=== PATIENT | male | born 1940 | race Caucasian/White ===

== ENCOUNTER 2023-06-12 09:48 | Day surgery (SDC) | payer OTHER, SELFPAY ==
[2023-06-12] VITALS (12 sets, daily range): BP systolic 111–155; BP diastolic 66–81; BMI 25.0
[2023-06-12] MEDS: NSS 237 ML IV (10:53)
[2023-06-12 10:58] LABS: Glucose - Point of Care 131 mg/dl (70-99)
--- NOTE | 2023-06-12 11:41 | ITS.CL.CATH ---
[facility] - Catheterization
Cardiac Catheterization
Procedure Report:
CARDIAC CATHETERIZATION REPORT
Date of Procedure: 06/12/2023
Referring: Garrett Mariano DO
Indication: Worsening angina with abnormal stress test
HEMODYNAMIC DATA
AO: 110/56
LV: Not done
LEFT VENTRICULOGRAPHY: Not done
CORONARY ANGIOGRAPHY
Dominance: Right
Left Main: Mild distal tapering
LAD: Diffuse moderate calcification in the proximal and mid LAD. There is 30% mid LAD stenosis and otherwise mild luminal irregularities in the LAD proper. The first diagonal branch is a medium size vessel with 30% mid stenosis. The second
diagonal branch is large with 40-50% ostial stenosis.
Circumflex: The circumflex gives rise to a medium sized OM1, a large OM 2, and a medium sized OM 3. The circumflex continues in the AV groove to provide collaterals to the occluded RCA. The large OM 2 is 80% proximal stenosis.
RCA: The RCA is dominant and occluded at its origin. There are well-developed septal collaterals to the large RPDA and two moderate to severely diseased right posterolateral branches fill via collaterals from the circumflex AV groove branch
Angioplasty: At the conclusion of the diagnostic study, the patient underwent angioplasty and stenting of the 80% proximal circumflex and OM 2 stenosis. Heparin was used for anticoagulation. Plavix 300 mg (half load as patient is on chronic
Plavix) was administered the procedure conclusion. A 6 Irish AL 2 guide was advanced to the aortic root but could not be manipulated into the left coronary ostium. Of note, there was significant tortuosity of the innominate making and a catheter
manipulation in the root challenging including into diagnostic study. We were able to get a EBU 3.5 guide to sit at the origin of the left coronary artery. A BMW wire was easily passed into the distal aspect of OM 2. Direct stenting with a 2.5 x
18 [place] JORGE was accomplished at 14 thomas. We were unable to pass a 2.5 NC Euphora balloon into the stented segment. The balloon was removed and a 5 Irish guide liner advanced into the vessel. This additional backup support allowed us to get the
postdilatation balloon easily into the stent. Postdilatation was accomplished to 18 thomas along the entire length of the stent. The final angiographic result was outstanding. There were no procedural complications.
Closure Device: None-the procedure was performed via the right radial artery. The Yo's test was normal prior to the procedure. Of note, there were technical challenges due to the innominate tortuosity and consideration should be given to some
other approach should he require additional procedures in the future
Radiation (mGy): 543
DAP (cm2.Gy): 34.7
Fluoroscopy time: 12.0 minutes
CONCLUSIONS
1: Calcific multivessel CAD as described
2: Successful stenting of 80% circumflex OM 2 stenosis using 2.5 x 18 [place] JORGE with outstanding angiographic result
3. 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 The distal vessel is well collateralized.
Copy to: Corky Mariano DO, Kim Arevalo DO ([place], [place])
Moe Hoyos MD, FACC, [facility]
[2023-06-12 12:28] LABS: ACT-LR - POC 239 Seconds (116-155)
[2023-06-12 12:46] LABS: ACT-LR - POC 326 Seconds (116-155)
[2023-06-12] MEDS: TYLENOL 650 MG PO (13:35)
[2023-06-12] MEDS: NSS 1000 IV (13:37)
[2023-06-12] MEDS: PLAVIX 300 MG PO (15:01)
--- NOTE | 2023-06-12 16:27 | W.PN.UPDATE ---
Update Note
Progress Note Update
83 yo WM s/p PCI OM2 (same day). He feels good, no cp, sob, abdiaziz diet, voiding, amb w/o dizziness. EKG no new ST changes, R rad site c/d/i. He was very unsure of his medications, I called his pharmacy [facility] and [facility] office to clarify but was not
successful as many of his meds are mail order and [facility] only had enalapril and donepezil filled within the last month. He states he is not on Plavix so total of 600mg load was given and importance of compliance with DAPT ASA/Plavix very important to
pt and son. He will also stop whatever statin he was on prior and start rosuvastatin 20mg. He will hold Metformin 48 hours post procedure. Cardiac rehab c/s. Activity restrictions reviewed. He will f/u [facility] in 2-4 weeks. He is for d/c home
after 530p.
CONCLUSIONS
1: Calcific multivessel CAD as described
2: Successful stenting of 80% circumflex OM 2 stenosis using 2.5 x 18 [place] JORGE with outstanding angiographic result
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
Copy to: Corky Mariano DO, Kim Arevalo DO ([place], [place])
== END 2023-06-12 17:17 | disposition home or self-care (01) ==
LOC: CATH 09:48
PROVIDERS: ATTENDING PHYSICIAN Internal Medicine Cardiovascular Disease; FAMILY PHYSICIAN Family Medicine
DX: I25.110 Atherosclerotic heart disease of native coronary artery with unstable angina pectoris (principal); I25.84 Coronary atherosclerosis due to calcified coronary lesion; Z79.82 Long term (current) use of aspirin; Z79.84 Long term (current) use of oral hypoglycemic drugs; I10 Essential (primary) hypertension; I25.2 Old myocardial infarction; Z95.5 Presence of coronary angioplasty implant and graft; Z79.02 Long term (current) use of antithrombotics/antiplatelets
CPT/HCPCS: 82962; 85347; 93005; 93454; C1725; C1769; C1874; C1887; C1894; C9600